=== PATIENT | female | born 1980 | race Caucasian/White ===

== ENCOUNTER 2018-12-14 20:02 | Emergency (ER) | payer OTHER ==
[~2018-12-14] VITALS: Ht 157.5 cm; Wt 81.7 kg
[2018-12-14 20:57] LABS: INFLUENZA A ANTIGEN None Detected (None Detect); INFLUENZA B ANTIGEN None Detected (None Detect)
[2018-12-14] MEDS ORDERED: ZPAK PO (21:24)
[2018-12-14] MEDS ORDERED: MEDROLDOSEPACK PO (21:24)
[2018-12-14] MEDS ORDERED: TESSALON PERLE100 MG PO (21:24)
[2018-12-14 21:34] VITALS: BP 127/89
== END 2018-12-14 21:35 | disposition home or self-care (01) ==
LOC: M.ERS 20:02
PROVIDERS: Nurse Practitioner Family
DX: J20.9 Acute bronchitis, unspecified (principal)